=== PATIENT | male | born 1960 | race Caucasian/White ===

== ENCOUNTER 2016-03-13 07:59 | Emergency (ER) | payer OTHER ==
[~2016-03-13] VITALS: Ht 160 cm; Wt 88.9 kg
[2016-03-13 09:14] LABS: HEMATOCRIT 46.6 % (38.0-50.0); MCH 29.7 PG (29.0-34.0); MCV 84.9 FL (86-99); MEAN PLAT.VOLUME 10.6 uM^3 (9.0-12.4); PLATELET COUNT 125 K/uL (156-360); RBC DIS.WIDTH-CV 13.1 % (11.8-14.6); RBC DIS.WIDTH-SD 40.3 % (39-53); RED BLOOD COUNT 5.49 M/uL (4.00-5.50); WHITE BLOOD COUNT 10.9 K/uL (4.1-10.2)
[2016-03-13 09:23] LABS: CHLORIDE 107 mEq/L (99-109); POTASSIUM 3.8 mEq/L (3.7-5.4); SODIUM 141 mEq/L (136-147)
[2016-03-13 09:25] LABS: GLUCOSE 152 mg/dL (70-99)
[2016-03-13 09:27] LABS: ANION GAP 10 MEQ/L (2-14); TOTAL BILIRUBIN 1.1 mg/dL (0.0-1.0)
[2016-03-13 09:29] LABS: ALKALINE PHOSPHATASE 50 IU/L (3-129); GFR ESTIMATE (CALCULATED) > 59 mL/min/
[2016-03-13 09:30] LABS: UREA NITROGEN (BUN) 13 mg/dL (9-23)
[2016-03-13] MEDS ORDERED: NORTRIPTYLINE H25 MG PO (11:04)
[2016-03-13] MEDS ORDERED: METOPROLOL SUCC25 MG PO (11:04)
[2016-03-13] MEDS ORDERED: ROPINIROLE HCL1 MG PO (11:04)
[2016-03-13 11:37] LABS: ADD MIUA? YES; BILIRUBIN SMALL; BLOOD LARGE; COLOR DK YELLOW ((YELLOW)); GLUCOSE (STRIP) 100; KETONES TRACE; LEUKOCYTES NEGATIVE; NITRITE NEGATIVE; PROTEIN (STRIP) 30; SPECIFIC GRAVITY 1.023 (1.000-1.030)
[2016-03-13 12:00] LABS: BACTERIA RARE; CASTS NONE SEEN /LPF; CRYSTALS NONE SEEN; EPITHELIAL CELLS NONE SEEN; MUCUS 3+; RED BLOOD CELLS 15-20 /HPF (0-5); UCUL ADDED? NO; WHITE BLOOD CELLS NONE SEEN /HPF (0-5)
[2016-03-13] MEDS ORDERED: LORTAB 5-325 M1 EACH PO (13:37)
[2016-03-13] MEDS ORDERED: FLOMAX0.4 MG PO (13:37)
[2016-03-13] MEDS ORDERED: COLACE100 MG PO (13:37)
[2016-03-13] MEDS ORDERED: NAPROSYN500 MG PO (13:37)
[2016-03-13 14:06] VITALS: BP 134/66
== END 2016-03-13 14:07 | disposition home or self-care (01) ==
LOC: EME → EDBD 07:59 → EME 14:07
PROVIDERS: Nurse Practitioner Family
DX: N20.0 Calculus of kidney (principal); K59.00 Constipation, unspecified; R31.9 Hematuria, unspecified; R10.32 Left lower quadrant pain; R73.9 Hyperglycemia, unspecified
CPT/HCPCS: 74020; 74176; 80053; 81003; 85027; 99281; 99285; J1885; J3010; J7030

== ENCOUNTER 2016-03-28 17:59 | Observation (INO) | payer OTHER ==
[~2016-03-28] VITALS: Ht 158.8 cm; Wt 90.0 kg
[~2016-03-28 17:59] MED LIST: COLACE100 MG PO; FLOMAX0.4 MG PO; LORTAB 5-325 M1 EACH PO; METOPROLOL SUCC25 MG PO; NAPROSYN500 MG PO; NORTRIPTYLINE H25 MG PO; ROPINIROLE HCL1 MG PO
[2016-03-28 19:06] LABS: HEMATOCRIT 45.9 % (38.0-50.0); MCH 29.7 PG (29.0-34.0); MCHC 34.9 G/DL (30.0-36.0); MCV 85.2 FL (86-99); PLATELET COUNT 141 K/uL (156-360); RBC DIS.WIDTH-CV 13.4 % (11.8-14.6); RBC DIS.WIDTH-SD 40.9 % (39-53); RED BLOOD COUNT 5.39 M/uL (4.00-5.50); WHITE BLOOD COUNT 9.1 K/uL (4.1-10.2)
[2016-03-28 19:26] LABS: CHLORIDE 108 mEq/L (99-109); POTASSIUM 4.6 mEq/L (3.7-5.4); SODIUM 141 mEq/L (136-147)
[2016-03-28 19:28] LABS: GLUCOSE 143 mg/dL (70-99)
[2016-03-28 19:29] LABS: ANION GAP 9 MEQ/L (2-14)
[2016-03-28 19:32] LABS: GFR ESTIMATE (CALCULATED) > 59 mL/min/; UREA NITROGEN (BUN) 13 mg/dL (9-23)
[2016-03-28] MEDS ORDERED: CRESTOR20 MG PO (23:25)
[2016-03-28] MEDS ORDERED: CIPRO PO (23:26)
[2016-03-28] MEDS ORDERED: DICLOFENAC SOD100 GM TP (23:27)
[2016-03-28] MEDS ORDERED: FLOMAX0.4 MG PO (23:28)
[2016-03-28] MEDS ORDERED: COLACE100 MG PO (23:29)
[2016-03-29] VITALS (7 sets, daily range): BP systolic 119–162; BP diastolic 58–84
[2016-03-29 05:01] LABS: ADD MIUA? YES; BILIRUBIN NEGATIVE; BLOOD LARGE; COLOR DK YELLOW ((YELLOW)); GLUCOSE (STRIP) 100; KETONES TRACE; LEUKOCYTES NEGATIVE; NITRITE NEGATIVE; PH, URINE 6.5 (5-8); PROTEIN (STRIP) NEGATIVE; SPECIFIC GRAVITY 1.018 (1.000-1.030); UROBILINOGEN 0.2 MG/DL (0.2-1.0)
[2016-03-29 05:18] LABS: RED BLOOD CELLS 30-40 /HPF (0-5)
[2016-03-29 05:19] LABS: BACTERIA 1+ /HPF; CASTS PRESENT /LPF; CRYSTALS NONE SEEN; EPITHELIAL CELLS RARE /HPF; HYALINE CASTS 0-5 /LPF; MUCUS NONE SEEN /LPF; UCUL ADDED? NO; WHITE BLOOD CELLS 0-5 /HPF (0-5)
[2016-03-30 04:17] VITALS: BP 141/76
[2016-03-30 05:52] LABS: EOSINOPHIL COUNT 0.1 K/uL (0-0.3); HEMATOCRIT 39.5 % (38.0-50.0); LYMPHOCYTE COUNT 1.5 K/uL (1.0-2.8); MCH 29.7 PG (29.0-34.0); MCHC 33.2 G/DL (30.0-36.0); MEAN PLAT.VOLUME 11.3 uM^3 (9.0-12.4); MONOCYTE COUNT 0.6 K/uL (0-0.8); NEUTROPHIL (%) 57.9 % (45-76); NEUTROPHIL COUNT 2.9 K/uL (1.8-6.4); PLATELET COUNT 118 K/uL (156-360); RBC DIS.WIDTH-CV 13.7 % (11.8-14.6); RBC DIS.WIDTH-SD 44.4 % (39-53); RED BLOOD COUNT 4.41 M/uL (4.00-5.50)
[2016-03-30 05:53] LABS: MCV 89.6 FL (86-99)
[2016-03-30 06:06] LABS: ANION GAP 7 MEQ/L (2-14); CHLORIDE 110 MEQ/L (99-109); GFR ESTIMATE (CALCULATED) > 59 mL/min/; POTASSIUM 4.3 MEQ/L (3.7-5.4); SAMPLE HEMOLYSIS CHECK 0; SAMPLE ICTERIC CHECK 0; SAMPLE LIPEMIA CHECK 0; SODIUM 143 MEQ/L (136-147); UREA NITROGEN (BUN) 12 mg/dL (9-23)
[2016-03-30 06:07] LABS: GLUCOSE 103 mg/dL (70-99)
[2016-03-30 07:16] VITALS: BP 136/70
[2016-03-30 10:20] VITALS: BP 115/56
[2016-03-30] MEDS ORDERED: PERCOCET 5/31 TABLET PO (15:01)
[2016-03-30] MEDS ORDERED: CIPRO500 MG PO (15:02)
== END 2016-03-30 15:40 | disposition home or self-care (01) ==
LOC: EME 17:59 → 5WEST 22:06 → EDOF 22:06 → 5WEST 23:47
PROVIDERS: Emergency Medicine; Internal Medicine
DX: N20.1 Calculus of ureter (principal); N13.4 Hydroureter; N17.9 Acute kidney failure, unspecified; I25.10 Atherosclerotic heart disease of native coronary artery without angina pectoris; I25.82 Chronic total occlusion of coronary artery; I25.2 Old myocardial infarction; E78.5 Hyperlipidemia, unspecified; K59.00 Constipation, unspecified; E66.9 Obesity, unspecified; Z68.35 Body mass index [BMI] 35.0-35.9, adult; Z87.891 Personal history of nicotine dependence; Z98.1 Arthrodesis status
CPT/HCPCS: 80048; 81003; 85025; 85027; 99281; 99285; C1758; C1769; C1876; G0378; J0690; J0692; J1170; J1200; J1885; J2250; J3010; J7030; J7050

== ENCOUNTER 2016-04-04 06:57 | Emergency (ER) | payer OTHER ==
[~2016-04-04] VITALS: Ht 160 cm; Wt 86.1 kg
[~2016-04-04 06:57] MED LIST changes: +CIPRO PO; +CIPRO500 MG PO; +CRESTOR20 MG PO; +DICLOFENAC SOD100 GM TP; +PERCOCET 5/31 TABLET PO
[2016-04-04 07:52] LABS: HEMATOCRIT 45.2 % (38.0-50.0); MCH 29.8 PG (29.0-34.0); MEAN PLAT.VOLUME 10.9 uM^3 (9.0-12.4); PLATELET COUNT 153 K/uL (156-360); RBC DIS.WIDTH-CV 13.4 % (11.8-14.6); RBC DIS.WIDTH-SD 41.2 % (39-53)
[2016-04-04 07:53] LABS: MCV 85.3 FL (86-99); WHITE BLOOD COUNT 9.1 K/uL (4.1-10.2)
[2016-04-04 07:54] LABS: ADD MIUA? YES; BILIRUBIN NEGATIVE; BLOOD LARGE; GLUCOSE (STRIP) 50; KETONES 5; LEUKOCYTES TRACE; NITRITE NEGATIVE; PROTEIN (STRIP) 100; SPECIFIC GRAVITY 1.031 (1.000-1.030)
[2016-04-04 07:59] LABS: CHLORIDE 106 mEq/L (99-109); POTASSIUM 4.1 mEq/L (3.7-5.4); SODIUM 142 mEq/L (136-147)
[2016-04-04 08:00] LABS: COLOR DK YELLOW ((YELLOW))
[2016-04-04 08:01] LABS: GLUCOSE 135 mg/dL (70-99)
[2016-04-04 08:03] LABS: ANION GAP 11 MEQ/L (2-14)
[2016-04-04 08:05] LABS: ALKALINE PHOSPHATASE 57 IU/L (3-129); GFR ESTIMATE (CALCULATED) > 59 mL/min/
[2016-04-04 08:06] LABS: UREA NITROGEN (BUN) 16 mg/dL (9-23)
[2016-04-04 08:09] LABS: LIPASE 9 U/L (1.0-51.0)
[2016-04-04 08:20] LABS: BACTERIA RARE /HPF; EPITHELIAL CELLS RARE /HPF; MUCUS NONE SEEN /LPF; RED BLOOD CELLS TNTC /HPF (0-5); UCUL ADDED? NO; WHITE BLOOD CELLS 0-5 /HPF (0-5)
[2016-04-04] MEDS ORDERED: BACTRIM,SEPT1 TABLET PO (08:45)
[2016-04-04 09:11] LABS: DIRECT BILIRUBIN 0.2 mg/dL (0.0-0.3); TOTAL BILIRUBIN 0.9 MG/DL (0.0-1.0)
[2016-04-04 10:41] VITALS: BP 157/85
== END 2016-04-04 10:42 | disposition home or self-care (01) ==
LOC: EME → EDBD 06:57 → EME 06:57
PROVIDERS: Emergency Medicine
DX: N13.30 Unspecified hydronephrosis (principal); I10 Essential (primary) hypertension; I25.2 Old myocardial infarction; Z87.442 Personal history of urinary calculi; Z96.0 Presence of urogenital implants
CPT/HCPCS: 74176; 80048; 80076; 81003; 83690; 85027; 99281; 99285; J1885; J2270; J2405; J7030